=== PATIENT | male | born 1970 | race Caucasian/White ===

== ENCOUNTER 2021-08-07 00:35 | Inpatient (IN) | payer OTHER ==
[~2021-08-07] VITALS: Ht 180.3 cm; Wt 96.2 kg
[~2021-08-07 00:35] MED LIST: NABUMETONE500 MG PO; PERCOCET 5/3251 TAB PO
[2021-08-08] MEDS ORDERED: ULTRACET PO (07:27)
[2021-08-08] MEDS ORDERED: CIPRO500 MG PO (07:27)
== END 2021-08-08 11:12 | disposition home or self-care (01) | DRG 343 ==
LOC: ER 00:35 → O/R 10:57 → SEC-K 10:57 → O/R 11:25 → SURH 15:44
PROVIDERS: ADMIT Surgery; ATTEND Surgery
PROC: 3E0F7GC Introduction of Other Therapeutic Substance into Respiratory Tract, Via Natural or Artificial Opening (ICD-10-PCS; 2021-08-07)
PROC: BW21ZZZ Computerized Tomography (CT Scan) of Abdomen and Pelvis (ICD-10-PCS; 2021-08-07)
PROC: 0DTJ0ZZ Resection of Appendix, Open Approach (ICD-10-PCS; principal; 2021-08-07 13:15)
DX: K35.890 Other acute appendicitis without perforation or gangrene (principal); T36.0X5A Adverse effect of penicillins, initial encounter; Y92.238 Other place in hospital as the place of occurrence of the external cause; Z20.822 Contact with and (suspected) exposure to COVID-19; G47.33 Obstructive sleep apnea (adult) (pediatric); E78.00 Pure hypercholesterolemia, unspecified

== ENCOUNTER 2025-10-21 07:42 | Emergency (ER) | payer OTHER ==
[~2025-10-21] VITALS: Ht 180.3 cm; Wt 102.5 kg
[~2025-10-21 07:42] MED LIST changes: +CIPRO500 MG PO; +ULTRACET PO
[2025-10-21] MEDS ORDERED: ENALAPRILAT DIHYDRATE 1.25 MG/ML VIAL IV ONE (08:30)
[2025-10-21] MEDS ORDERED: ACETAMINOPHEN 500 MG GEL..CAP PO ONE (08:30)
[2025-10-21] MEDS ORDERED: 0.9 % SODIUM CHLORIDE 250 ML IV ONE (08:30)
[2025-10-21 08:58] LABS: BASO % 1.5 % (0.1-1.2); EOS # 0.77 (0.04-0.54); EOS % 11.3 % (0.7-7.0); LYMPH # 1.53 (1.18-3.74); LYMPH % 22.4 % (19.3-53.1); MEAN PLATELET VOLUME 10.00 fl (9.4-12.4); MONO # 0.43 (0.24-0.82); MONO % 6.3 % (4.7-12.5); NEUT # 3.97 (1.56-6.13); NEUT % 58.1 % (34.0-71.1); RED CELL DISTRIBUTION WIDTH 12.7 % (11.6-14.4)
[2025-10-21 10:01] LABS: ALT/SGPT 50.0 U/L (12-78); AST/SGOT 21.0 U/L (15-37); BILIRUBIN TOTAL 0.75 mg/dL (0.3-1.2); BUN CREA RATIO 14.0 (7.0-25.0); CREATININE SERUM 1.32 mg/dL (0.70-1.30); GFR 56.52; GLOBULINA 4.0 G/DL (2.4-3.5); GLUCOSE FASTING 107.0 mg/dL (65-100); OSMOLALITY SERUM 280.0 MOSM/KG (275-295)
[2025-10-21] MEDS ORDERED: ZESTRIL2.5 MG PO (10:54)
== END 2025-10-21 11:32 | disposition home or self-care (01) ==
LOC: ER 07:42
PROVIDERS: General Practice
DX: I10 Essential (primary) hypertension (principal); R53.1 Weakness; R42 Dizziness and giddiness